=== PATIENT | female | born 1985 | race Caucasian/White ===

== ENCOUNTER 2022-06-14 14:44 | Emergency (ER) | payer OTHER, SELFPAY ==
[2022-06-14 18:19] LABS: Bilirubin Negative (Negative); Blood, Urine Trace (Negative); Glucose, Urine (Dipstick) 100 mg/dL (Negative); Ketone, Urine Negative (Negative); Leukocyte Small (Negative); Nitrite Positive (Negative); Protein, Urine (Dipstick) Negative (Neg-Trace); Urobilinogen 0.2 mg/dL (Less than 2); pH, Urine 6.5 (5.0-9.0)
[2022-06-14 18:21] LABS: Clarity Hazy (Clear)
[2022-06-14 18:22] LABS: Pregnancy Test - Urine (BHCG) Negative (Negative); Pregu Control Background? CLEAR/WHITE (CLR/WHITE); Pregu Control Bar Appear? YES (CONTROL BAR)
[2022-06-14 18:27] LABS: Bacteria/HPF Rare-Few HPF (None Seen); RBC/HPF 0-3 HPF (0-3); WBC/HPF 21-50 HPF (0-3)
[2022-06-14] MEDS ORDERED: Doxycycline 100 MG CAP ONE (18:57)
[2022-06-14] MEDS ORDERED: cefTRIAXone\\ROCEPHIN 500 MG VIAL ONE (18:57)
[2022-06-14] MEDS ORDERED: Sterile Water 10 ML ONE (18:57)
[2022-06-14] MEDS ORDERED: metroNIDAZOLE 250 MG TAB ONE (18:57)
[2022-06-15 20:12] LABS: Chlamydia by PCR Not Detected (NotDetected); GC by PCR DETECTED (NotDetected)
== END 2022-06-14 19:45 | disposition home or self-care (01) ==
LOC: MADERS 14:44
DX: N73.9 Female pelvic inflammatory disease, unspecified (principal); M77.11 Lateral epicondylitis, right elbow; N39.0 Urinary tract infection, site not specified; F17.210 Nicotine dependence, cigarettes, uncomplicated
CPT/HCPCS: 81003; 81015; 81025; 87077; 87086; 87186; 87480; 87491; 87510; 87591; 87660; 96372; J0696